=== PATIENT | male | born 1950 | race Caucasian/White ===

== ENCOUNTER 2018-09-08 10:58 | Day surgery (SDC) | payer OTHER ==
[~2018-09-08] VITALS: Ht 162.6 cm; Wt 71.6 kg
[~2018-09-08 10:58] MED LIST: ACIDOPHILUS1 EAC1 PO; BIOTIN5000 MC1 SL; CLARITIN10 MG PO; COMBIVENT RESPIM4 GM INH; LORA.5 PO; QUET25 PO; Synthroid25 MCG PO
--- NOTE | 2018-09-08 16:10 | NUR ---
09/08/18 1610 Delphine Barton PT C/O 2/10 RECTAL PA[address] IN SDU[address] ZUNIGA SENT RX FOR LIDOCAINE JELLY TO PHARMACY. PT DENIES PAIN MEDS IN SDU. RN INSTRUCTED PT ITS OK TO USE PREPERATION H PER
== END 2018-09-08 14:31 | disposition home or self-care (01) ==
LOC: ORSCSDS 10:58
PROVIDERS: Internal Medicine Gastroenterology
PROC: 0DBN8ZX Excision of Sigmoid Colon, Via Natural or Artificial Opening Endoscopic, Diagnostic (ICD-10-PCS; principal; 2018-09-08 12:30)
PROC: 06LY4CC Occlusion of Hemorrhoidal Plexus with Extraluminal Device, Percutaneous Endoscopic Approach (ICD-10-PCS; principal; 2018-09-08 12:30)
PROC: 0DBK8ZX Excision of Ascending Colon, Via Natural or Artificial Opening Endoscopic, Diagnostic (ICD-10-PCS; principal; 2018-09-08 12:30)
DX: Z12.11 Encounter for screening for malignant neoplasm of colon (principal); Z86.010 Personal history of colon polyps; D12.2 Benign neoplasm of ascending colon; D12.5 Benign neoplasm of sigmoid colon; K64.8 Other hemorrhoids; K57.30 Diverticulosis of large intestine without perforation or abscess without bleeding; Z87.891 Personal history of nicotine dependence; J43.9 Emphysema, unspecified; E78.2 Mixed hyperlipidemia; E03.9 Hypothyroidism, unspecified; Z79.899 Other long term (current) drug therapy
CPT/HCPCS: 88305; J7120